=== PATIENT | male | born 1945 | race Caucasian/White ===

== ENCOUNTER 2018-12-17 09:31 | Observation (INO) ==
--- NOTE | 2018-12-17 10:13 | ERNOTE ---
Medical Problem HPI - General Chief Complaint: General Assessment Time Seen by Provider: 12/17/18 09:36 Source: patient Exam Limitations: no limitations - Immun/Allergies/Home Medications Immunizations: IMMUNIZATION HX Immunizations Up to Date Yes History of Influenza Vaccine More Information Required Hx Pneumococcal Vaccination More Information Required Allergies/Adverse Reactions: Allergies No Known Allergies Allergy (Verified 07/11/18 09:25) Home Medications: HOME MEDICATIONS Furosemide [Lasix] 20 mg PO DAILY 09/23/16 [Last Taken Unknown] Metoprolol Succinate [Toprol Xl] 50 mg PO DAILY 09/23/16 [Last Taken Unknown] Acetaminophen 650 mg PO Q6H PRN 12/14/18 [Last Taken Unknown] Acyclovir [Zovirax] 400 mg PO BID 12/14/18 [Last Taken Unknown] Allopurinol [Zyloprim] 300 mg PO DAILY 12/14/18 [Last Taken Unknown] Amlodipine Besylate 5 mg PO DAILY 12/14/18 [Last Taken Unknown] Amoxicillin/Potassium Clav [Amox Tr-K Clv 875-125 mg Tab] 1 ea PO Q12H 12/14/18 [Last Taken Unknown] Baclofen 10 mg PO TID PRN 12/14/18 [Last Taken Unknown] Calcium Carbonate [Calcium] 500 mg PO DAILY 12/14/18 [Last Taken Unknown] Hydromorphone HCl [Dilaudid] 2 mg PO Q4H PRN 12/14/18 [Last Taken Unknown] Insulin Aspart [Novolog Flexpen] See Protocol SQ TID 12/14/18 [Last Taken Unknown] Insulin Glargine,Hum.rec.anlog [Lantus Solostar] 30 unit SQ HS 12/14/18 [Last Taken Unknown] Losartan Potassium 100 mg PO DAILY 12/14/18 [Last Taken Unknown] Ondansetron HCl [Zofran] 8 mg PO Q8H PRN 12/14/18 [Last Taken Unknown] Polyethylene Glycol 3350 [Miralax] 17 gm PO DAILY PRN 12/14/18 [Last Taken Unknown] Prochlorperazine Maleate 10 mg PO Q6H PRN 12/14/18 [Last Taken Unknown] Sennosides 17.2 mg PO BID PRN 12/14/18 [Last Taken Unknown] Sulfamethoxazole/Trimethoprim [Bactrim Ds] 1 tab PO BID PRN 12/14/18 [Last Taken Unknown] Trimethobenzamide HCl 300 mg PO Q6H PRN 12/14/18 [Last Taken Unknown] - History of Present History Narrative: Patient was diagnosed and treated for a lymphoma last year. 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 He was admitted to the [facility] two weeks ago, had a nephrostomy tube placed as a tumor was compressing his right ureter. He received five days of chemo, last day six days ago. Today he had an outpatient CBC that showed low platelets and hemoglobin today. He feels very weak and vomited once last night (non bloody),has been drinking fluids since, no diarrhea, no abdominal pain. He had had bloody urine in the nephrostomy and in his urinal since discharge from [facility], denies any clots, no other bleeding, no bruising, no fever. He denies any significant pain, has only prn pain medication Review of Systems - Review of Systems Constitutional: Present: recent illness, weakness, fatigue, malaise. Absent: fever ENT: Absent: nose congestion, sore throat Respiratory: Absent: shortness of breath, cough Cardiology: Absent: chest pain Gastrointestinal/Abdominal: Present: See HPI, nausea, vomiting. Absent: diarrhea, abdominal pain Genitourinary: Present: See HPI Musculoskeletal: Absent: back pain Skin: Absent: rash Neurological: Present: weakness. Absent: headache Hematologic/Lymphatic: Absent: easy bruising Medical History (Last Updated 12/17/18 @ 10:44 by Padmini Rodriguez MD) Hypertension (Acute) Onset Date: Unknown Diabetes mellitus (Acute) Onset Date: Unknown B-cell lymphoma CHF (congestive heart failure) Chickenpox Onset Date: Unknown as child Cholelithiasis Onset Date: [address] @ [facility] Coronary artery disease Onset Date: Unknown Diabetes mellitus, type II Onset Date: Unknown Measles Onset Date: Unknown as child Mumps Onset Date: Unknown as child Myocardial infarction Onset Date: Unknown Personal history of colonic polyps Onset Date: 1998 Tendinitis Onset Date: 2007 Dr. Gillette-left elbow and forearm benign neoplasm of skin; other specified sites of skin Onset Date: 2008 Recurring, LLE-neurofibroma hyperlipidemia Onset Date: Unknown Surgical History: Surgical History (Last Updated 12/17/18 @ 10:45 by Padmini Rodriguez MD) S/P CABG x 5 (Acute) Onset Date: Unknown H/O nephrostomy History of excision of lesion Onset Date: 2008 [place]-Recurring lesion, LLE-neurofibroma History of repair of rotator cuff Onset Date: Unknown Hx laparoscopic cholecystectomy Onset Date: 2011 Tinguely colonoscopy with biopsy Onset Date: 2013-polyps x3, '04-few scattered diverticula in sigmoid otherwise wnl- [facility]. Tinguely-tubular adenoma. Recheck 5 yrs. Social History: Preferred Language Danish Do you have any nondenominational or Yes: jainism cultural preference? Smoking Status Never smoker Have you smoked in the past 12 No months Do you dip or chew tobacco No Alcohol Use none Drug Use none (Last Updated 07/16/18 @ 14:14 by Ana Laura Oconnor RN) No Social History Section defined Physical Exam - Physical Exam General Appearance: Present: wd/wn, alert, no apparent distress Head Exam: Present: normal inspection, no evidence of injury Eye Exam: Normal inspection: bilateral, PERRL: bilateral Ears, Nose, Throat: Present: normal ENT inspection, normal pharynx Neck: Present: normal inspection Respiratory: Present: no respiratory distress, normal breath sounds, no acc essory muscle use, lungs clear Cardiovascular/Chest: Present: tachycardia - slightly tachycardic Gastrointestinal/Abdominal: Present: normal bowel sounds, nontender, nondistended, soft Back Exam: Present: normal inspection, no CVA tenderness, no vertebral tenderness, other - nephrostomy tube right lower back, dressing clean without leakage Extremity Exam: Present: no edema Neurological Exam: Present: alert, oriented, normal mood/affect Skin Exam: Present: warm/dry, pallor. Absent: skin rash Progress - Results and Orders Patient's Lab Results:: I have reviewed the patient's lab results. - Vital Signs Patient's Vital Signs:: I have reviewed the patient's vital signs. Vital Signs: Vital Signs 12/17/18 09:38 Temperature 36.4 C Pulse Rate 108 H Respiratory Rate 15 Blood Pressure 125/64 O2 Sat by Pulse Oximetry 99 - EKG EKG #1 EKG: NSR - sinustachycardia 102, RBBB EKG read: Interp. by me - X-Ray X-Ray #1 X-Ray: chest - no acute changes Interpretation: Reviewed by me - Progress/Reassessment Chief Complaint: General Assessment Progress Note-Subjective: 12/17/18 10:55 call to [facility] 12/17/18 11:[address] Hopkins (oncology), agrees with giving two units of irradiated RBCs, suggest giving one unit of platelets as well either today or tomorrow as no indication for sepsis or infection no reason for transfer at this point 12/17/18 11:20 updated patient and family on results and plan will discharge patient to the annex for transfusion no fluids given in ER for tachycardia as patient has CHF and will receive blood and platelets [facility] 16 12/17/18 19:20 patient had been in the annex for the last few hours, after finishing platelets and second unit of RBCs patient started to have a fever. This is most likely a transfusion reaction but as patient is neutropenic a neutropenic fever is not excluded. Discussed with Dr Rubio ([employer]) agreed to direct admit patient, will order blood culture start patient on cipro 500mg po bid and augmentin 875po bid Dr Rubio will come in and assess patient Departure Clinical Impression: Thrombocytopenia Anemia Qualifiers: Anemia type: unspecified type Qualified Code(s): D64.9 - Anemia, unspecified Neutropenia Qualifiers: Neutropenia type: secondary to cancer chemotherapy Qualified Code(s): D70.1 - Agranulocytosis secondary to cancer chemotherapy - Departure Disposition: Home self-care Condition: Stable
[2018-12-17 10:27] LABS: Albumin * 2.8 gm/dl (3.4-5.0); Anion Gap 13.7 mmol/L (6.8-13.8); BUN/Creatinine Ratio 17.8 (9.0-21.6); Bilirubin, Total 0.9 mg/dL (0.0-1.1); CRP 4.1 mg/dL (0.0-0.9); Ca. Corrected For Albumin 12.3 mg/dL (8.4-10.2); Calcium * 11.7 mg/dL (7.9-10.9); Carbon Dioxide 24.1 mmol/L (24-32.6); Potassium 3.8 mmol/L (3.4-4.6); Total Protein 5.1 gm/dL (6.2-8.2); Troponin I 0.023 ng/mL (0.00-0.10)
[2018-12-17 10:31] LABS: Urine Bilirubin Negative (NEGATIVE); Urine Blood 250 /ul (NEGATIVE); Urine Ketone Negative (NEGATIVE); Urine Nitrite Negative (NEGATIVE); Urine Protein 100 mg/dL (NEGATIVE); Urine Urobilinogen Normal (NORMAL)
[2018-12-17 10:43] LABS: Urine Appearance Cloudy (CLEAR); Urine Bacteria None Seen; Urine Color Red; Urine RBC >50 /hpf (0-5); Urine WBC None Seen /hpf (0-5)
[2018-12-17] MEDS ORDERED: INSULIN LISPRO 100 UNITS/ML VIAL SC ONE (10:51)
[2018-12-17] MEDS ORDERED: PROCHLORPERAZINE MALEATE 10 MG TABLET PO ONE (17:07)
[2018-12-17] MEDS ORDERED: AMOX TR/POTASSIUM CLAVULANATE 875 MG TABLET PO SCH (21:00)
[2018-12-17] MEDS ORDERED: CIPROFLOXACIN HCL 500 MG TABLET PO SCH (21:00)
[2018-12-17 21:21] LABS: Hemoglobin 6.3 gm/dL (13.5-18.0); Mean Cell Volume 81.4 fl (78-100); Mean Corpuscular Hemoglobin 28.5 pg (27-31); Mean Platelet Volume 9.4 fl (8-11.3); Platelet Count 34 K/mm3 (150-450); Red Blood Count 2.21 M/mm3 (4.7-6.0); Red Cell Distribution Width 12.3 % (11.5-14.0); White Blood Count 0.4 K/mm3 (4.0-10.5)
[2018-12-17 21:37] LABS: Total Cells Counted 25
[2018-12-17 21:38] LABS: Eosinophil 4 % (0-3); Lymphocyte 92 % (20-51); Neutrophil 4 % (42-75); Platelet Estimate Decreased (NORMAL)
[2018-12-17 21:39] LABS: Hypochromia 3+; Microcytosis 2+
--- NOTE | 2018-12-17 22:13 | HP ---
Chief Complaint - Chief Complaint Date of Service: 12/17/18 Time of Service: 22:10 Chief Complaint: fever, neutropenia, blood loss anemia History of Present Illness: 73-year-old male with history of B-cell lymphoma currently undergoing chemotherapy, most recent treatments 1 week prior. Brought into the hospital for blood transfusion. Initial hemoglobin was 6.4 with a platelet count of 10. He was given 1 unit packed red blood cells as well as 2 units of platelets. Follow-up hemoglobin showed him to have a hemoglobin of 6.3. He does have a nephrostomy bag that shows blood in it though this does not likely account for the drop as there is not danette blood in the bag. He also spiked a fever following the transfusion which is likely a transfusion reaction though due to patient's history patient was started on Augmentin and Cipro as he had no other signs or symptoms of infection. Patient was placed under observation to monitor vitals. Medical History (Last Reviewed 12/17/18 @ 20:37 by Estephania Herrera RN) Hypertension (Acute) Onset Date: Unknown Diabetes mellitus (Acute) Onset Date: Unknown B-cell lymphoma CHF (congestive heart failure) Chickenpox Onset Date: Unknown as child Cholelithiasis Onset Date: [address] @ [facility] Coronary artery disease Onset Date: Unknown Diabetes mellitus, type II Onset Date: Unknown Measles Onset Date: Unknown as child Mumps Onset Date: Unknown as child Myocardial infarction Onset Date: Unknown Personal history of colonic polyps Onset Date: 1998 Tendinitis Onset Date: 2007 Dr. Gillette-left elbow and forearm benign neoplasm of skin; other specified sites of skin Onset Date: 2008 Recurring, LLE-neurofibroma hyperlipidemia Onset Date: Unknown Surgical History: Surgical History (Last Reviewed 12/17/18 @ 20:37 by Estephania Herrera RN) S/P CABG x 5 (Acute) Onset Date: Unknown H/O nephrostomy History of excision of lesion Onset Date: 2008 [place]-Recurring lesion, LLE-neurofibroma History of repair of rotator cuff Onset Date: Unknown Hx laparoscopic cholecystectomy Onset Date: 2011 Tinguely colonoscopy with biopsy Onset Date: 2013-polyps x3, '04-few scattered diverticula in sigmoid otherwise wnl- [facility]. Tinguely-tubular adenoma. Recheck 5 yrs. Social History: Patient Lives/Resources Home Utilized Occupation Father Preferred Language Latvian Do you have any presybeterian or Yes: Uatsdin cultural preference? Smoking Status Former smoker Have you smoked in the past 12 Yes months Do you dip or chew tobacco No Alcohol Use none Drug Use none (Last Updated 07/16/18 @ 14:14 by Ana Laura Oconnor RN) No Social History Section defined Review Of Systems (GEN) - Review of Systems Generalized/Overall Review: Present: Weakness. Absent: Chills, Fever EENTM: Present: No Symptoms Reported Respiratory: Present: No Symptoms Reported Cardiac: Present: No Symptoms Reported Genitourinary: Present: Hematuria - In nephrostomy bag Musculoskeletal: Present: No Symptoms Reported Neurological: Present: No Symptoms Reported Immunizations: IMMUNIZATION HX Immunizations Up to Date Yes History of Influenza Vaccine More Information Required Hx Pneumococcal Vaccination More Information Required Allergies/Adverse Reactions: Allergies Allergy/AdvReac Type Severity Reaction Status Date / Time No Known Allergies Allergy Verified 07/11/18 09:25 Home Medications: HOME MEDICATIONS Furosemide [Lasix] 20 mg PO DAILY 09/23/16 [Last Taken 12/17/18 09:00] Metoprolol Succinate [Toprol Xl] 50 mg PO DAILY 09/23/16 [Last Taken 12/17/18 09:00] Acetaminophen 650 mg PO Q6H PRN 12/14/18 [Last Taken Unknown] Acyclovir [Zovirax] 400 mg PO BID 12/14/18 [Last Taken 12/17/18 08:30] Allopurinol [Zyloprim] 300 mg PO DAILY 12/14/18 [Last Taken 12/17/18 08:30] Amlodipine Besylate 5 mg PO DAILY 12/14/18 [Last Taken 12/17/18 09:00] Amoxicillin/Potassium Clav [Amox Tr-K Clv 875-125 mg Tab] 1 ea PO Q12H 12/14/18 [Last Taken 12/17/18 08:30] Baclofen 10 mg PO TID PRN 12/14/18 [Last Taken 12/15/18] Calcium Carbonate [Calcium] 500 mg PO DAILY 12/14/18 [Last Taken 12/17/18 12:00] Hydromorphone HCl [Dilaudid] 2 mg PO Q4H PRN 12/14/18 [Last Taken 12/14/18] Insulin Aspart [Novolog Flexpen] See Protocol SQ TID 12/14/18 [Last Taken 12/17/18 19:30] Insulin Glargine,Hum.rec.anlog [Lantus Solostar] 30 unit SQ HS 12/14/18 [Last Taken 12/16/18 21:00] Losartan Potassium 100 mg PO DAILY 12/14/18 [Last Taken 12/17/18 12:00] Ondansetron HCl [Zofran] 8 mg PO Q8H PRN 12/14/18 [Last Taken Unknown] Polyethylene Glycol 3350 [Miralax] 17 gm PO DAILY PRN 12/14/18 [Last Taken Unknown] Prochlorperazine Maleate 10 mg PO Q6H PRN 12/14/18 [Last Taken 12/17/18 17:00] Sennosides 17.2 mg PO BID PRN 12/14/18 [Last Taken 12/16/18 09:00] Sulfamethoxazole/Trimethoprim [Bactrim Ds] 1 tab PO BID PRN 12/14/18 [Last Taken 12/13/18] Trimethobenzamide HCl 300 mg PO Q6H PRN 12/14/18 [Last Taken 12/16/18 22:00] Exam - Exam Vital Signs: Vital Signs - Last Taken Temp 36.6 C 12/17/18 19:40 Pulse 123 H 12/17/18 19:40 Resp 16 12/17/18 19:40 BP 131/61 12/17/18 19:40 Pulse Ox 98 12/17/18 19:40 Comprehensive Narrative: 12/17/18 22:16 Minimal exam done due to patient's immunocompromised situation. Constitutional: Present: Alert, Oriented x3 Abdomen: Present: soft, nontender Skin Exam: Present: normal color, warm/dry Appearance: Present: appropriate appearance, appropriate insight Eye contact: Present: cooperative Thoughts: Present: normal thought pattern, normal mood /affect Diagnostic Studies: Abnormal Lab Results 12/17/18 12/17/18 12/17/18 Range/Units 08:40 10:00 10:23 WBC (4.0-10.5) K/mm3 RBC (4.7-6.0) M/mm3 Hgb (13.5-18.0) gm/dL Hct (42.0-52.0) % Plt Count (150-450) K/mm3 Neutrophils % (Manual) (42-75) % Lymphocytes % (Manual) (20-51) % Eosinophils % (Manual) (0-3) % Platelet Estimate (NORMAL) BUN 27 H (6-23) mg/dL Creatinine 1.52 H (0.4-1.4) mg/dL Est GFR (Non-Af Amer) 48 L D (60-130) mL/min Random Glucose 278 H (70-110) mg/dL Calcium 11.7 H (7.9-10.9) mg/dL Calcium Adj for Albumin 12.3 H (8.4-10.2) mg/dL ALT 13 L (19-67) U/L C-Reactive Prot, Quant 4.1 H (0.0-0.9) mg/dL Total Protein 5.1 L (6.2-8.2) gm/dL Albumin 2.8 L (3.4-5.0) gm/dl Urine Protein 100 H (NEGATIVE) mg/dL Urine Blood 250 H (NEGATIVE) /ul Prot Sulfosalicylic Acd 4+ H (0) mg/dL Urine RBC >50 H (0-5) /hpf Crossmatch See Detail 12/17/18 Range/Units 19:45 WBC 0.4 L D (4.0-10.5) K/mm3 RBC 2.21 L (4.7-6.0) M/mm3 Hgb 6.3 L* (13.5-18.0) gm/dL Hct 18.0 L* (42.0-52.0) % Plt Count 34 L (150-450) K/mm3 Neutrophils % (Manual) 4 L (42-75) % Lymphocytes % (Manual) 92 H (20-51) % Eosinophils % (Manual) 4 H (0-3) % Platelet Estimate Decreased L (NORMAL) BUN (6-23) mg/dL Creatinine (0.4-1.4) mg/dL Est GFR (Non-Af Amer) (60-130) mL/min Random Glucose (70-110) mg/dL Calcium (7.9-10.9) mg/dL Calcium Adj for Albumin (8.4-10.2) mg/dL ALT (19-67) U/L C-Reactive Prot, Quant (0.0-0.9) mg/dL Total Protein (6.2-8.2) gm/dL Albumin (3.4-5.0) gm/dl Urine Protein (NEGATIVE) mg/dL Urine Blood (NEGATIVE) /ul Prot Sulfosalicylic Acd (0) mg/dL Urine RBC (0-5) /hpf Crossmatch Laboratory Results WBC 0.4 K/mm3 (4.0-10.5) L D 12/17/18 19:45 RBC 2.21 M/mm3 (4.7-6.0) L 12/17/18 19:45 Hgb 6.3 gm/dL (13.5-18.0) L* 12/17/18 19:45 Hct 18.0 % (42.0-52.0) L* 12/17/18 19:45 MCV 81.4 fl (78-100) 12/17/18 19:45 MCH 28.5 pg (27-31) 12/17/18 19:45 MCHC 35.0 g/dl (32-36) 12/17/18 19:45 RDW 12.3 % (11.5-14.0) 12/17/18 19:45 Plt Count 34 K/mm3 (150-450) L 12/17/18 19:45 MPV 9.4 fl (8-11.3) 12/17/18 19:45 Neutrophils % (Manual) 4 % (42-75) L 12/17/18 19:45 Lymphocytes % (Manual) 92 % (20-51) H 12/17/18 19:45 Eosinophils % (Manual) 4 % (0-3) H 12/17/18 19:45 Platelet Estimate Decreased (NORMAL) L 12/17/18 19:45 Hypochromasia 3+ 12/17/18 19:45 Microcytosis 2+ 12/17/18 19:45 Sodium 132 mmol/L (132-142) 12/17/18 10:00 Plasma Sodium 135 mmol/L (130-142) 12/17/18 10:00 Potassium 3.8 mmol/L (3.4-4.6) 12/17/18 10:00 Chloride 98 mmol/L (97-106) 12/17/18 10:00 Carbon Dioxide 24.1 mmol/L (24-32.6) 12/17/18 10:00 Anion Gap 13.7 mmol/L (6.8-13.8) 12/17/18 10:00 BUN 27 mg/dL (6-23) H 12/17/18 10:00 Creatinine 1.52 mg/dL (0.4-1.4) H 12/17/18 10:00 Est GFR (Non-Af Amer) 48 mL/min (60-130) L D 12/17/18 10:00 BUN/Creatinine Ratio 17.8 (9.0-21.6) 12/17/18 10:00 Random Glucose 278 mg/dL (70-110) H 12/17/18 10:00 Lactic Acid, Venous 1.2 mmol/L (0.4-2.0) 12/17/18 10:00 Calcium 11.7 mg/dL (7.9-10.9) H 12/17/18 10:00 Calcium Adj for Albumin 12.3 mg/dL (8.4-10.2) H 12/17/18 10:00 Total Bilirubin 0.9 mg/dL (0.0-1.1) 12/17/18 10:00 AST 9 U/L (0-48) 12/17/18 10:00 ALT 13 U/L (19-67) L 12/17/18 10:00 Alkaline Phosphatase 59 U/L (50-170) 12/17/18 10:00 Troponin I 0.023 ng/mL (0.00-0.10) 12/17/18 10:00 C-Reactive Prot, Quant 4.1 mg/dL (0.0-0.9) H 12/17/18 10:00 Total Protein 5.1 gm/dL (6.2-8.2) L 12/17/18 10:00 Albumin 2.8 gm/dl (3.4-5.0) L 12/17/18 10:00 Procalcitonin 0.35 ng/mL (0.05-0.50) 12/17/18 10:00 Urine Color Red 12/17/18 10:23 Urine Appearance Cloudy (CLEAR) 12/17/18 10:23 Urine pH 6.0 pH (5.0-7.0) 12/17/18 10:23 Ur Specific [place] 1.020 SP.GR. (1.005-1.030) 12/17/18 10:23 Urine Protein 100 mg/dL (NEGATIVE) H 12/17/18 10:23 Urine Glucose (UA) Negative mg/dL (NEGATIVE) 12/17/18 10:23 Urine Ketones Negative mg/dL (NEGATIVE) 12/17/18 10:23 Urine Blood 250 /ul (NEGATIVE) H 12/17/18 10:23 Urine Nitrate Negative (NEGATIVE) 12/17/18 10:23 Urine Bilirubin Negative mg/dl (NEGATIVE) 12/17/18 10:23 Prot Sulfosalicylic Acd 4+ mg/dL (0) H 12/17/18 10:23 Urine Urobilinogen Normal EU/dl (NORMAL) 12/17/18 10:23 Ur Leukocyte Esterase Negative /ul (NEGATIVE) 12/17/18 10:23 Urine RBC >50 /hpf (0-5) H 12/17/18 10:23 Urine WBC None seen /hpf (0-5) 12/17/18 10:23 Ur Epithelial Cells 0-5 /hpf (0-5) 12/17/18 10:23 Urine Bacteria None seen (NONE) 12/17/18 10:23 Urine Culture Comments No culture indicated 12/17/18 10:23 Blood Type Cancelled 12/17/18 08:40 Antibody Screen Cancelled 12/17/18 08:40 Crossmatch See Detail 12/17/18 08:40 Assessment/Plan - Narrative Narrative: I was notified of the patient's hemoglobin result as I entered the room. Concerned that patient's clinical situation may deteriorate rather quickly I called the [facility] and discussed this case with the hematology/oncology fellow who agreed that the patient should be transferred up to the ER soon. Spoke with Dr. Sanders in the ER, I explained the situation to him and discussed the clinical picture as well as the labs that we had on this patient and he agreed to accept transfer. Discussed this with the patient who also accepted the transfer Tto the [facility]. The [place] asked us to hang 1 more unit of packed red blood cells to be given in route. - Assessment/Plan (1) B-cell lymphoma Problem: Acute (2) Anemia Problem: Acute Qualifiers: Anemia type: unspecified type Qualified Code(s): D64.9 - Anemia, unspecified (3) Thrombocytopenia Problem: Acute (4) Neutropenia Problem: Acute Qualifiers: Neutropenia type: secondary to cancer chemotherapy Qualified Code(s): D70.1 - Agranulocytosis secondary to cancer chemotherapy; T45.1X5A - Adverse effect of antineoplastic and immunosuppressive drugs, initial encounter
--- NOTE | 2018-12-17 22:26 | DS ---
Transfer Discharge Summary - Diagnosis(s)/Problems (1) B-cell lymphoma Problem: Acute (2) Anemia Problem: Acute (3) Thrombocytopenia Problem: Acute (4) Neutropenia Problem: Acute - Course Description of Stay: Patient being transferred to the [facility] due to anemia, neutropenia, history of B-cell lymphoma recently undergoing chemotherapy. Patient had hemoglobin of 6.4 prior to being transfused 1 unit packed red blood cells which dropped posttransfusion 96.3. Patient has a nephrostomy bag which has some blood in it but does not account for the total loss of blood product. He also developed a fever of a 101 posttransfusion which was likely just a reaction to the blood products as the patient had no signs or symptoms of infection prior to the blood. Due to his clinical picture though and his labs his case was discussed with the hematology oncology fellow at the [facility] she recommended that he be transferred up there tonight. This case was discussed with Dr. Sanders, and ER doctor worked at the [facility]. His vitals are fairly stable aside from him being tachycardic at 123. Blood pressure 130/70. Respirations 16 sat 97% room air. Platelet count john to 34 from 10. Hemoglobin was 6.4 down to 6.3 upon transfer. 1 unit of packed red blood cells was ordered and hung prior to transfer. Procedures Performed: none - Results and Findings Results and Findings: Laboratory Results - last 24 hr 12/17/18 12/17/18 12/17/18 08:40 10:00 10:00 WBC RBC Hgb Hct MCV MCH MCHC RDW Plt Count MPV Neutrophils % (Manual) Lymphocytes % (Manual) Eosinophils % (Manual) Platelet Estimate Hypochromasia Microcytosis Sodium 132 Plasma Sodium 135 Potassium 3.8 Chloride 98 Carbon Dioxide 24.1 Anion Gap 13.7 BUN 27 H Creatinine 1.52 H Est GFR (Non-Af Amer) 48 L D BUN/Creatinine Ratio 17.8 Random Glucose 278 H Lactic Acid, Venous Calcium 11.7 H Calcium Adj for Albumin 12.3 H Total Bilirubin 0.9 AST 9 ALT 13 L Alkaline Phosphatase 59 Troponin I 0.023 C-Reactive Prot, Quant 4.1 H Total Protein 5.1 L Albumin 2.8 L Procalcitonin 0.35 Urine Color Urine Appearance Urine pH Ur Specific [place] Urine Protein Urine Glucose (UA) Urine Ketones Urine Blood Urine Nitrate Urine Bilirubin Prot Sulfosalicylic Acd Urine Urobilinogen Ur Leukocyte Esterase Urine RBC Urine WBC Ur Epithelial Cells Urine Bacteria Urine Culture Comments Blood Type Cancelled Antibody Screen Cancelled Crossmatch See Detail 12/17/18 12/17/18 12/17/18 10:00 10:23 19:45 WBC 0.4 L D RBC 2.21 L Hgb 6.3 L* Hct 18.0 L* MCV 81.4 MCH 28.5 MCHC 35.0 RDW 12.3 Plt Count 34 L MPV 9.4 Neutrophils % (Manual) 4 L Lymphocytes % (Manual) 92 H Eosinophils % (Manual) 4 H Platelet Estimate Decreased L Hypochromasia 3+ Microcytosis 2+ Sodium Plasma Sodium Potassium Chloride Carbon Dioxide Anion Gap BUN Creatinine Est GFR (Non-Af Amer) BUN/Creatinine Ratio Random Glucose Lactic Acid, Venous 1.2 Calcium Calcium Adj for Albumin Total Bilirubin AST ALT Alkaline Phosphatase Troponin I C-Reactive Prot, Quant Total Protein Albumin Procalcitonin Urine Color Red Urine Appearance Cloudy Urine pH 6.0 Ur Specific [place] 1.020 Urine Protein 100 H Urine Glucose (UA) Negative Urine Ketones Negative Urine Blood 250 H Urine Nitrate Negative Urine Bilirubin Negative Prot Sulfosalicylic Acd 4+ H Urine Urobilinogen Normal Ur Leukocyte Esterase Negative Urine RBC >50 H Urine WBC None seen Ur Epithelial Cells 0-5 Urine Bacteria None seen Urine Culture Comments No culture indicated Blood Type Antibody Screen Crossmatch 12/17/18 19:45 WBC RBC Hgb Hct MCV MCH MCHC RDW Plt Count MPV Neutrophils % (Manual) Lymphocytes % (Manual) Eosinophils % (Manual) Platelet Estimate Hypochromasia Microcytosis Sodium Plasma Sodium Potassium Chloride Carbon Dioxide Anion Gap BUN Creatinine Est GFR (Non-Af Amer) BUN/Creatinine Ratio Random Glucose Lactic Acid, Venous Calcium Calcium Adj for Albumin Total Bilirubin AST ALT Alkaline Phosphatase Troponin I C-Reactive Prot, Quant Total Protein Albumin Procalcitonin Urine Color Urine Appearance Urine pH Ur Specific [place] Urine Protein Urine Glucose (UA) Urine Ketones Urine Blood Urine Nitrate Urine Bilirubin Prot Sulfosalicylic Acd Urine Urobilinogen Ur Leukocyte Esterase Urine RBC Urine WBC Ur Epithelial Cells Urine Bacteria Urine Culture Comments Blood Type B Positive Antibody Screen Negative Crossmatch See Detail - Medications Medications: Active Medications Amoxicillin/Clavulanate Potassium (Augmentin 875-125 Tablet) 875 mg PO BID [facility]; Protocol Stop: 01/16/19 21:01 Last Admin: 12/17/18 21:14 Dose: 875 mg Documented by: Ciprofloxacin (Cipro) 500 mg PO BID [facility]; Protocol Stop: 01/16/19 21:01 Last Admin: 12/17/18 21:14 Dose: 500 mg Documented by: Discontinued Medications Insulin Human Lispro (Humalog) 15 units SC ONCE ONE Stop: 12/17/18 10:52 Last Admin: 12/17/18 11:16 Dose: 15 units Documented by: Prochlorperazine Maleate (Compazine) 10 mg PO ONCE ONE Stop: 12/17/18 17:08 Last Admin: 12/17/18 17:10 Dose: 10 mg Documented by: - Disposition Disposition: Short Term Hospital Inpatient Condition: Serious Discharge Date: 12/17/18 Discharge Time: 22:26
[2018-12-18 00:33] VITALS: BP 108/57
== END 2018-12-17 23:10 | disposition short-term general hospital (02) ==
LOC: ER 09:31 → MS 09:31 → ER 11:41
PROVIDERS: ADMIT Family Medicine; ATTEND Family Medicine
CPT/HCPCS: 36415; 36430; 71010; 71045; 80053; 81001; 83605; 84145; 84484; 85025; 86078; 86140; 86850; 86900; 87040; 93005; 96372; 99285; G0378

== ENCOUNTER 2019-06-02 19:29 | Inpatient (IN) ==
--- NOTE | 2019-06-02 19:50 | ERNOTE ---
Dyspnea - Date Date of Service: 06/02/19 - General Presenting Symptoms: shortness of breath Time Seen by Provider: 06/02/19 19:43 Source: EMS notes reviewed, shelter records Exam Limitations: no limitations - Immun/Allergies/Home Medications Immunizations: IMMUNIZATION HX Immunizations Up to Date Yes History of Influenza Vaccine Yes Hx Pneumococcal Vaccination Yes Allergies/Adverse Reactions: Allergies No Known Allergies Allergy (Verified 06/02/19 23:50) Home Medications: HOME MEDICATIONS Furosemide [Lasix] 20 mg PO DAILY 09/23/16 [Last Taken 12/17/18 09:00] Acetaminophen 650 mg PO Q6H PRN 12/14/18 [Last Taken Unknown] Calcium Carbonate [Calcium] 500 mg PO DAILY 12/14/18 [Last Taken 12/17/18 12:00] Insulin Aspart [Novolog Flexpen] See Protocol SQ TID 12/14/18 [Last Taken 12/17/18 19:30] Losartan Potassium 100 mg PO DAILY 12/14/18 [Last Taken 12/17/18 12:00] Ondansetron HCl [Zofran] 8 mg PO Q8H PRN 12/14/18 [Last Taken Unknown] Polyethylene Glycol 3350 [Miralax] 17 gm PO DAILY PRN 12/14/18 [Last Taken Unknown] Prochlorperazine Maleate 10 mg PO Q6H PRN 12/14/18 [Last Taken 12/17/18 17:00] Sennosides 17.2 mg PO BID PRN 12/14/18 [Last Taken 12/16/18 09:00] Sulfamethoxazole/Trimethoprim [Bactrim Ds] 1 tab PO BID PRN 12/14/18 [Last Taken 12/13/18] Trimethobenzamide HCl 300 mg PO Q6H PRN 12/14/18 [Last Taken 12/16/18 22:00] melatonin 5 mg tablet 5 mg PO HS #30 tab 05/12/19 [Last Taken Unknown] oxycodone-acetaminophen 5 mg-325 mg tablet 1 tab PO Q4H PRN #60 tab 05/12/19 [Last Taken Unknown] zolpidem 5 mg tablet 5 mg PO HS PRN #30 tab 05/14/19 [Last Taken Unknown] amiodarone 200 mg tablet 200 mg PO DAILY 05/16/19 [Last Taken Unknown] insulin glargine (U-100) 100 unit/mL (3 mL) subcutaneous pen 20 unit SUBCUT HS ml 05/21/19 [Last Taken Unknown] tramadol 50 mg tablet 50 mg PO Q6H PRN #30 tab 05/27/19 [Last Taken Unknown] potassium chloride 40 mEq/15 mL oral liquid 10 meq PO DAILY #473 ml 05/31/19 [Last Taken Unknown] Acyclovir [Zovirax] 400 mg PO BID 06/02/19 [Last Taken Unknown] acetaZOLAMIDE [Diamox Sequels] 500 mg PO BID 06/02/19 [Last Taken Unknown] acetazolamide 250 mg tablet 250 mg PO QID #60 tab 06/02/19 [Last Taken Unknown] metoprolol tartrate 25 mg tablet 25 mg PO BID #60 tab 06/02/19 [Last Taken Unknown] - History of Present Illness Narrative: 73-year-old male sent from shelter for possible aspiration was noted earlier tonight this evening and his saturations from his O2 sats were in the low 80s he was suctioned at the shelter sent in by ambulance where he was put on 10 L and sats are 98% he feels warm to touch and has audible rhonchi history of being treated for B-cell lymphoma Patient and sister who was at the bedside have agreed that he will be a DNR if he stops breathing and CPR is necessary Date (Duration): 06/02/19 Time (Timing): 19:45 Severity: severe Treatment WRECKING [employer]PER[employer]OR: paramedics Initiating event: Reports: aspiration/choking Frequency of episodes: Reports: no prior episodes Modifying Factors - (Improves): Reports: oxygen Modifying Factors (Worsens): Reports: coughing Associated Symptoms-Dyspnea: Reports: denies symptoms Prior Treatment: Reports: recently seen Review of Systems - Review of Systems Constitutional: Present: recent illness, fever, weakness, malaise EYE: Present: no symptoms reported ENT: Present: no symptoms reported Respiratory: Present: shortness of breath, cough, wheezing Cardiology: Present: palpitations Gastrointestinal/Abdominal: Present: no symptoms reported Genitourinary: Present: no symptoms reported Musculoskeletal: Present: back pain Skin: Present: rash, lumps Neurological: Present: weakness, numbness All Other Systems: All systems neg except as marked Medical History (Updated 05/13/19 @ 00:00 by ) Hypertension (Acute) Onset Date: Unknown Diabetes mellitus (Acute) Onset Date: Unknown B-cell lymphoma CHF (congestive heart failure) Chickenpox Onset Date: Unknown as child Cholelithiasis Onset Date: [address] @ [facility] Coronary artery disease Onset Date: Unknown Diabetes mellitus, type II Onset Date: Unknown Measles Onset Date: Unknown as child Mumps Onset Date: Unknown as child Myocardial infarction Onset Date: Unknown Personal history of colonic polyps Onset Date: 1998 Tendinitis Onset Date: 2007 Dr. Gillette-left elbow and forearm benign neoplasm of skin; other specified sites of skin Onset Date: 2008 Recurring, LLE-neurofibroma hyperlipidemia Onset Date: Unknown Surgical History: Surgical History (Updated 06/02/19 @ 23:50 by Marimar Poole RN) S/P CABG x 5 (Acute) Onset Date: Unknown Pacemaker H/O nephrostomy History of excision of lesion Onset Date: 2008 B[place]-Recurring lesion, LLE-neurofibroma History of repair of rotator cuff Onset Date: Unknown Hx laparoscopic cholecystectomy Onset Date: 2011 Tinguely colonoscopy with biopsy Onset Date: 2013-polyps x3, '-few scattered diverticula in sigmoid otherwise [facility] Tinguely-tubular adenoma. Recheck 5 yrs. Family History: Family History (Updated 06/02/19 @ 23:50 by Marimar Poole RN) Other Adopted Social History: (Last Reviewed 06/02/19 @ 20:11 by Ailyn Pineda RN) Social History: Marital status: Single Tobacco: Smoking Status: Never smoker Alcohol: alcohol intake: current alcohol intake frequency: holiday/special occasion Substance Use: substance use type: does not use Dietary Habits: caffeine: Yes Physical Exam - Physical Exam General Appearance: Present: alert, moderate distress, lethargic, cachetic Head Exam: Present: other - 3 cm lump in the right parietal region of the skull scalp Eye Exam: Normal inspection: bilateral, EOMI: bilateral Ears, Nose, Throat: Present: pharyngeal erythema, dry mucous membranes Neck: Present: normal inspection, nontender Respiratory: Present: respiratory distress, expiration (prolonged), crackles, rales, stridor, wheezing Cardiovascular/Chest: Present: tachycardia Peripheral Pulses: N=norm/S=strong/W=weak/B=bound/A=absent: Carotid (R): Normal, Carotid (L): Normal, Radial (R): Normal, Radial (L): Normal Gastrointestinal/Abdominal: Present: normal bowel sounds Back Exam: Present: normal inspection, decreased range of motion Extremity Exam: Present: normal inspection, no edema Neurological Exam: Present: motor weakness, disoriented to person, disoriented to time Skin Exam: Present: warm/dry Lymphatic Exam: Present: no adenopathy Progress - Results and Orders Patient's Lab Results:: I have reviewed the patient's lab results. Results and Orders: Patient has BNP of 1318, lactic acid of 3.0, BUN 45, creatinine 1.0 CO2 is 17.5 Hemoglobin 11.8 hematocrit 37 5 WBC 11.2 with 83 polys 8 lymphs ABG on 5 L pH 7.389 PCO2 20.8 PO2 83 bicarb 12.3 sat 96.4 - Vital Signs Patient's Vital Signs:: I have reviewed the patient's vital signs. Vital Signs: Vital Signs 06/02/19 19:35 Temperature 37.1 C Pulse Rate 114 H Respiratory Rate 31 H Blood Pressure 112/48 O2 Sat by Pulse Oximetry 98 - EKG EKG #1 EKG: NSR EKG read: Interp. by me EKG Comments: Sinus tachycardia heart rate 119 right bundle branch block no acute finding as compared to April the - X-Ray X-Ray #1 X-Ray: chest Interpretation: Discgypsy w/ radiologist X-ray Comments: Read by radiologist as a retrocardiac infiltrate consistent with pneumonia - Progress/Reassessment Chief Complaint: Dyspnea Plan - Plan Plan: Plan is to start antibiotics Zosyn vancomycin is for possible aspiration pneumonia and admit the patient Departure Clinical Impression: Aspiration pneumonia, CHF (congestive heart failure), Lymphoma - Departure Disposition: Short Term Hospital Inpatient Condition: Stable
[2019-06-02] MEDS ORDERED: ALBUTEROL SULFATE/IPRATROPIUM 3 ML NEBU IH ONE (19:53)
[2019-06-02] MEDS ORDERED: ACETAMINOPHEN 650 MG SUPP.RECT RC ONE (19:53)
[2019-06-02] MEDS ORDERED: NORMAL SALINE 1,000 ML IV ONE ×2 (19:53→20:45)
[2019-06-02 20:24] LABS: Hematocrit 37.5 % (42.0-52.0); Hemoglobin 11.8 gm/dL (13.5-18.0); Mean Cell Volume 96.9 fl (78-100); Mean Corpuscular Hemoglobin 30.5 pg (27-31); Mean Corpuscular Hgb Conc 31.5 g/dl (32-36); Mean Platelet Volume 10.7 fl (8-11.3); Platelet Count 116 K/mm3 (150-450); Red Blood Count 3.87 M/mm3 (4.7-6.0); Red Cell Distribution Width 17.7 % (11.5-14.0); White Blood Count 11.2 K/mm3 (4.0-10.5)
[2019-06-02 20:29] LABS: Total Cells Counted 100
[2019-06-02 20:37] LABS: Prothrombin Time (Patient) 12.3 Seconds (9.1-10.7)
[2019-06-02 20:40] LABS: INR 1.25 INR (0.92-1.08); Partial Thrombolplastin Time 30.3 Seconds (24-32)
[2019-06-02 20:45] LABS: Albumin * 2.6 gm/dl (3.4-5.0); Anion Gap 17.6 mmol/L (6.8-13.8); Ca. Corrected For Albumin 9.8 mg/dL (8.4-10.2); Carbon Dioxide 17.5 mmol/L (24-32.6); Potassium 4.1 mmol/L (3.4-4.6); Total Protein 5.8 gm/dL (6.2-8.2); Troponin I 0.046 ng/mL (0.00-0.10)
[2019-06-02 20:49] LABS: Basophil 1 % (0-1); Eosinophil 1 % (0-3); Lymphocyte 8 % (20-51); Monocyte 7 % (0-9); Neutrophil 83 % (42-75); Neutrophil # 9.3 K/mm3 (1.3-6.0); Platelet Estimate Normal (NORMAL)
[2019-06-02 20:51] LABS: Anisocytosis Trace; Ovalocytes Trace
[2019-06-02] MEDS ORDERED: FUROSEMIDE 10 MG/ML VIAL IV ONE (20:55)
[2019-06-02 21:07] LABS: Urine Bilirubin Negative (NEGATIVE); Urine Blood Negative /ul (NEGATIVE); Urine Ketone Negative (NEGATIVE); Urine Nitrite Negative (NEGATIVE); Urine Protein Negative (NEGATIVE); Urine Specific Gravity 1.015 SP.GR. (1.005-1.030); Urine Urobilinogen Normal (NORMAL)
[2019-06-02] MEDS ORDERED: VANCOMYCIN HCL 1 GM in DEXTROSE 5 % IN WATER 250 ML IV ONE ×2 (21:09)
[2019-06-02] MEDS ORDERED: PIPERACILLIN SODIUM/TAZOBACTAM 3.375 GM in DEXTROSE 5 % IN WATER 100 ML IV ONE ×2 (21:10)
[2019-06-02 21:14] LABS: Urine Appearance Clear (CLEAR); Urine Bacteria TRACE; Urine Color Dark Yellow; Urine RBC None Seen /hpf (0-5); Urine WBC None Seen /hpf (0-5)
[2019-06-02] MEDS ORDERED: traMADol HCL 50 MG TABLET PO ONE (21:31)
[2019-06-03] MEDS ORDERED: traMADol HCL 50 MG TABLET PO PRN (01:19)
[2019-06-03] MEDS ORDERED: ACETAMINOPHEN 650 MG SUPP.RECT RC PRN (01:21)
[2019-06-03] MEDS ORDERED: ALBUTEROL SULFATE/IPRATROPIUM 3 ML NEBU IH ONE (01:23)
[2019-06-03] MEDS: ALBUTEROL SULFATE/IPRATROPIUM 3 ML NEBU IH PRN ×2 (01:27→21:18)
[2019-06-03] MEDS: NORMAL SALINE 1,000 ML IV PRN ×2 (01:32→17:33)
[2019-06-03] MEDS ORDERED: NORMAL SALINE 500 ML IV ONE ×2 (07:53→11:52)
--- NOTE | 2019-06-03 08:14 | HP ---
Chief Complaint - Chief Complaint Date of Service: 06/03/19 Time of Service: 07:57 Chief Complaint: shortness of breath History of Present Illness: Patient has a past medical history of B-cell lymphoma. He had been undergoing chemotherapy, but had a difficult time with his last round, requiring hospitalization at the [facility]. He has been at the [facility] for approximately a month. He has been having difficulty swallowing for several weeks and has been losing weight. He has very limited range of motion of his arms, and has had a left facial droop. There was concern for stroke, but imaging did not show an infarct. Two days ago, he was drinking coffee, and went to cough, and inhaled some coffee. Yesterday he developed some gurgling noises at the care center, and was brought here yesterday evening. Chest x-ray did sh ow a retrocardiac infiltrate. He had a temp of 38.1 overnight. His blood pressure is decreasing this morning, and is down to 85/43. He received approximately 2500 cc IV fluids and 1 dose each of vanc and Zosyn in the ER last night. His heart rate, respiratory rate remain elevated. He is oxygenating at 90% via oxymask. The hospice conversation has been held with him multiple times, and he declined previously. Today he does agree to talk with hospice. He also agrees to shut off his defibrillator. Medical History (Updated 06/03/19 @ 08:14 by Ijeoma Kitchen DO) Hypertension (Acute) Onset Date: Unknown Diabetes mellitus (Acute) Onset Date: Unknown Cardiac defibrillator in place B-cell lymphoma CHF (congestive heart failure) Chickenpox Onset Date: Unknown as child Cholelithiasis Onset Date: [address] @ [facility] Coronary artery disease Onset Date: Unknown Diabetes mellitus, type II Onset Date: Unknown Measles Onset Date: Unknown as child Mumps Onset Date: Unknown as child Myocardial infarction Onset Date: Unknown Personal history of colonic polyps Onset Date: 1998 Tendinitis Onset Date: 2007 Dr. Gillette-left elbow and forearm benign neoplasm of skin; other specified sites of skin Onset Date: 2008 Recurring, LLE-neurofibroma hyperlipidemia Onset Date: Unknown Surgical History: Surgical History (Updated 06/03/19 @ 08:14 by Ijeoma Kitchen DO) S/P CABG x 5 (Acute) Onset Date: Unknown H/O nephrostomy History of excision of lesion Onset Date: 2008 [place]-Recurring lesion, LLE-neurofibroma History of repair of rotator cuff Onset Date: Unknown Hx laparoscopic cholecystectomy Onset Date: 2011 Tinguely colonoscopy with biopsy Onset Date: 2013-polyps x3, '-few scattered diverticula in sigmoid otherwise wnl- [facility]. Tinguely-tubular adenoma. Recheck 5 yrs. Family History: Family History (Updated 06/02/19 @ 23:50 by Marimar Poole RN) Other Adopted Social History: (Last Reviewed 06/02/19 @ 20:11 by Ailyn Pineda RN) Social History: Marital status: Single Tobacco: Smoking Status: Never smoker Alcohol: alcohol intake: current alcohol intake frequency: holiday/special occasion Substance Use: substance use type: does not use Dietary Habits: caffeine: Yes Review Of Systems (GEN) - Review of Systems Generalized/Overall Review: Present: Weakness, Fever Respiratory: Present: Cough Cardiac: Absent: Chest Pain, Edema Abdominal: Absent: Nausea, Vomiting Genitourinary: Present: No Symptoms Reported Musculoskeletal: Present: Neck Pain Neurological: Present: Weakness Skin: Present: No Symptoms Reported Immunizations: IMMUNIZATION HX Immunizations Up to Date Yes History of Influenza Vaccine Yes Hx Pneumococcal Vaccination Yes Allergies/Adverse Reactions: Allergies Allergy/AdvReac Type Severity Reaction Status Date / Time No Known Allergies Allergy Verified 06/02/19 23:50 Home Medications: HOME MEDICATIONS Acetaminophen 650 mg PO Q6H PRN 12/14/18 [Last Taken Unknown] Calcium Carbonate [Calcium] 1,250 mg PO QAM 12/14/18 [Last Taken 12/17/18 12:00] Insulin Aspart [Novolog Flexpen] See Protocol SQ TID 12/14/18 [Last Taken 12/17/18 19:30] Losartan Potassium 100 mg PO QAM 12/14/18 [Last Taken 12/17/18 12:00] Ondansetron HCl [Zofran] 8 mg PO Q8H PRN 12/14/18 [Last Taken Unknown] Polyethylene Glycol 3350 [Miralax] 17 gm PO DAILY PRN 12/14/18 [Last Taken Unknown] melatonin 5 mg tablet 5 mg PO HS #30 tab 05/12/19 [Last Taken Unknown] oxycodone-acetaminophen 5 mg-325 mg tablet 1 tab PO Q4H PRN #60 tab 05/12/19 [Last Taken Unknown] zolpidem 5 mg tablet 5 mg PO HS PRN #30 tab 05/14/19 [Last Taken Unknown] amiodarone 200 mg tablet 200 mg PO QAM 05/16/19 [Last Taken Unknown] insulin glargine (U-100) 100 unit/mL (3 mL) subcutaneous pen 20 unit SUBCUT HS ml 05/21/19 [Last Taken Unknown] Acyclovir [Zovirax] 400 mg PO BID 06/02/19 [Last Taken Unknown] acetaZOLAMIDE [Diamox Sequels] 500 mg PO BID 06/02/19 [Last Taken Unknown] Baclofen 10 mg PO DAILY PRN 06/03/19 [Last Taken Unknown] Carboxymethylcellulose Sodium [Refresh Liquigel] 2 drp .ROUTE BID PRN 06/03/19 [Last Taken Unknown] Docusate Sodium 100 mg PO Q24H PRN 06/03/19 [Last Taken Unknown] Furosemide 20 mg PO Q24H PRN 06/03/19 [Last Taken Unknown] Methyl Salicylate/Menthol [Bengay Greaseless Cream] 57 gm TOPICAL PRN PRN [Last Taken Unknown] Metoprolol Succinate 50 mg PO QAM 06/03/19 [Last Taken Unknown] Potassium Chloride 7.5 ml PO QAM 06/03/19 [Last Taken Unknown] cefTRIAXone SODIUM [Rocephin] 1 gm IM DAILY 06/03/19 [Last Taken Unknown] traMADol HCL [Tramadol HCl] 25 mg PO Q6H PRN 06/03/19 [Last Taken Unknown] Exam - Exam Vital Signs: Vital Signs - Last Taken Temp 36.8 C 06/03/19 06:53 Pulse 107 H 06/03/19 06:53 Resp 30 H 06/03/19 06:53 BP 85/43 L 06/03/19 06:53 Pulse Ox 91 L 06/03/19 07:19 Constitutional: Present: Elderly - frail ENT Exam: Present: other - left facial droop Neck: Present: lymphadenopathy (L) Respiratory: Present: rhonchi - RUL, tachypnea Cardiovascular/Chest: Present: tachycardia Abdomen: Present: soft, hypoactive Extremity: Absent: lower extremity edema Neurologic: Present: sensory deficit - unable to feels sensation in his legs. Makes sudden head movements, and appears somewhat restless Eye contact: Present: other - intermittent Diagnostic Studies: Abnormal Lab Results 06/02/19 06/02/19 06/02/19 Range/Units 20:17 20:17 20:17 WBC 11.2 H (4.0-10.5) K/mm3 RBC 3.87 L (4.7-6.0) M/mm3 Hgb 11.8 L (13.5-18.0) gm/dL Hct 37.5 L (42.0-52.0) % MCHC 31.5 L (32-36) g/dl RDW 17.7 H (11.5-14.0) % Plt Count 116 L (150-450) K/mm3 Neutrophils % (Manual) 83 H (42-75) % Lymphocytes % (Manual) 8 L (20-51) % Neutrophils # (Manual) 9.3 H (1.3-6.0) K/mm3 Lymphocytes # (Manual) 0.9 L (1.5-3.5) k/mm3 PT 12.3 H (9.1-10.7) Seconds INR (Anticoag Therapy) 1.25 H (0.92-1.08) INR pCO2 (35.0-48.0) mmHg HCO3 (21.0-28.0) mmol/L Total CO2 (19.0-24.0) mmol/L Base Excess (-2.0-3.0) mmol/L Chloride 110 H (97-106) mmol/L Carbon Dioxide 17.5 L (24-32.6) mmol/L Anion Gap 17.6 H (6.8-13.8) mmol/L BUN 45 H D (6-23) mg/dL BUN/Creatinine Ratio 45.0 H (9.0-21.6) Random Glucose 132 H (70-110) mg/dL Lactic Acid, Venous (0.4-2.0) mmol/L ALT 8 L (19-67) U/L B-Natriuretic Peptide 1318 H (5-350) pg/mL Total Protein 5.8 L (6.2-8.2) gm/dL Albumin 2.6 L (3.4-5.0) gm/dl 06/02/19 06/02/19 06/02/19 Range/Units 20:17 21:10 23:45 WBC (4.0-10.5) K/mm3 RBC (4.7-6.0) M/mm3 Hgb (13.5-18.0) gm/dL Hct (42.0-52.0) % MCHC (32-36) g/dl RDW (11.5-14.0) % Plt Count (150-450) K/mm3 Neutrophils % (Manual) (42-75) % Lymphocytes % (Manual) (20-51) % Neutrophils # (Manual) (1.3-6.0) K/mm3 Lymphocytes # (Manual) (1.5-3.5) k/mm3 PT (9.1-10.7) Seconds INR (Anticoag Therapy) (0.92-1.08) INR pCO2 20.8 L (35.0-48.0) mmHg HCO3 12.3 L (21.0-28.0) mmol/L Total CO2 12.9 L (19.0-24.0) mmol/L Base Excess -10.9 L (-2.0-3.0) mmol/L Chloride (97-106) mmol/L Carbon Dioxide (24-32.6) mmol/L Anion Gap (6.8-13.8) mmol/L BUN (6-23) mg/dL BUN/Creatinine Ratio (9.0-21.6) Random Glucose (70-110) mg/dL Lactic Acid, Venous 3.0 H* 2.5 H* (0.4-2.0) mmol/L ALT (19-67) U/L B-Natriuretic Peptide (5-350) pg/mL Total Protein (6.2-8.2) gm/dL Albumin (3.4-5.0) gm/dl Laboratory Results WBC 11.2 K/mm3 (4.0-10.5) H 06/02/19 20:17 RBC 3.87 M/mm3 (4.7-6.0) L 06/02/19 20:17 Hgb 11.8 gm/dL (13.5-18.0) L 06/02/19 20:17 Hct 37.5 % (42.0-52.0) L 06/02/19 20:17 MCV 96.9 fl (78-100) 06/02/19 20:17 MCH 30.5 pg (27-31) 06/02/19 20:17 MCHC 31.5 g/dl (32-36) L 06/02/19 20:17 RDW 17.7 % (11.5-14.0) H 06/02/19 20:17 Plt Count 116 K/mm3 (150-450) L 06/02/19 20:17 MPV 10.7 fl (8-11.3) 06/02/19 20:17 83 % (42-75) H 06/02/19 20:17 8 % (20-51) L 06/02/19 20:17 7 % (0-9) 06/02/19 20:17 1 % (0-3) 06/02/19 20:17 1 % (0-1) 06/02/19 20:17 9.3 K/mm3 (1.3-6.0) H 06/02/19 20:17 0.9 k/mm3 (1.5-3.5) L 06/02/19 20:17 0.8 k/mm3 (0.0-1.0) 06/02/19 20:17 0.1 k/mm3 (0.0-0.7) 06/02/19 20:17 0.1 k/mm3 (0.0-0.1) 06/02/19 20:17 Normal (NORMAL) 06/02/19 20:17 Trace 06/02/19 20:17 Trace 06/02/19 20:17 PT 12.3 Seconds (9.1-10.7) H 06/02/19 20:17 INR (Anticoag Therapy) 1.25 INR (0.92-1.08) H 06/02/19 20:17 PTT ([place]) 30.3 Seconds (24-32) 06/02/19 20:17 pCO2 20.8 mmHg (35.0-48.0) L 06/02/19 21:10 pO2 83.1 mmHg (83.0-108.0) 06/02/19 21:10 HCO3 12.3 mmol/L (21.0-28.0) L 06/02/19 21:10 Total CO2 12.9 mmol/L (19.0-24.0) L 06/02/19 21:10 Base Excess -10.9 mmol/L (-2.0-3.0) L 06/02/19 21:10 ABG pH 7.39 (7.35-7.45) 06/02/19 21:10 ABG O2 Sat (Measured) 96.4 % (94.0-98.0) 06/02/19 21:10 Sodium 141 mmol/L (132-142) 06/02/19 20:17 142 mmol/L (130-142) 06/02/19 20:17 Potassium 4.1 mmol/L (3.4-4.6) D 06/02/19 20:17 Chloride 110 mmol/L (97-106) H 06/02/19 20:17 Carbon Dioxide 17.5 mmol/L (24-32.6) L 06/02/19 20:17 17.6 mmol/L (6.8-13.8) H 06/02/19 20:17 BUN 45 mg/dL (6-23) H D 06/02/19 20:17 1.00 mg/dL (0.4-1.4) 06/02/19 20:17 Est GFR (Non-Af Amer) 78 mL/min (60-130) D 06/02/19 20:17 45.0 (9.0-21.6) H 06/02/19 20:17 132 mg/dL (70-110) H 06/02/19 20:17 2.5 mmol/L (0.4-2.0) H* 06/02/19 23:45 Calcium 9.0 mg/dL (7.9-10.9) 06/02/19 20:17 Calcium Adj for Albumin 9.8 mg/dL (8.4-10.2) 06/02/19 20:17 1.0 mg/dL (0.0-1.1) 06/02/19 20:17 AST 40 U/L (0-48) 06/02/19 20:17 ALT 8 U/L (19-67) L 06/02/19 20:17 96 U/L (50-170) 06/02/19 20:17 0.046 ng/mL (0.00-0.10) 06/02/19 20:17 B-Natriuretic Peptide 1318 pg/mL (5-350) H 06/02/19 20:17 5.8 gm/dL (6.2-8.2) L 06/02/19 20:17 2.6 gm/dl (3.4-5.0) L 06/02/19 20:17 Dark yellow 06/02/19 21:00 Clear (CLEAR) 06/02/19 21:00 6.0 pH (5.0-7.0) 06/02/19 21:00 Ur Specific [place] 1.015 SP.GR. (1.005-1.030) 06/02/19 21:00 Negative mg/dL (NEGATIVE) 06/02/19 21:00 Negative mg/dL (NEGATIVE) 06/02/19 21:00 Negative mg/dL (NEGATIVE) 06/02/19 21:00 Negative /ul (NEGATIVE) 06/02/19 21:00 Negative (NEGATIVE) 06/02/19 21:00 Negative mg/dl (NEGATIVE) 06/02/19 21:00 Normal EU/dl (NORMAL) 06/02/19 21:00 Ur Leukocyte Esterase Negative /ul (NEGATIVE) 06/02/19 21:00 None seen /hpf (0-5) 06/02/19 21:00 None seen /hpf (0-5) 06/02/19 21:00 Ur Epithelial Cells None seen /hpf (0-5) 06/02/19 21:00 Trace (NONE) 06/02/19 21:00 Culture to follow 06/02/19 21:00 Assessment/Plan - Assessment/Plan (1) Sepsis Assessment: Patient has a past medical history of B-cell lymphoma. He had been undergoing chemotherapy, but had a difficult time with his last round, requiring hospitalization. He has been at the [facility] for approximately a month. He has been having difficulty swallowing for several weeks and has been losing weight. Two days ago, he was drinking coffee, and went to cough, and inhaled some coffee. Yesterday he developed some gurgling noises at the care center, and was brought here yesterday evening. Chest x-ray did show a retrocardiac infiltrate. He had a temp of 38.1 overnight. His blood pressure is decreasing this morning, and is down to 85/43. He received approximately 2500 cc IV fluids and 1 dose each of vanc and Zosyn in the ER last night. His heart rate, respiratory rate remain elevated. He is oxygenating at 90% via oxymask. Lactate was elevated last night in the ED. His INR is a bit elevated and platelets are low, indicating possible liver failure also. The hospice conversation has been held with him multiple times, and he declined previously. Today he does agree to talk with hospice. He also agrees to shut off his defibrillator. For now, we will treat with a 500 cc bolus of normal saline, and continue the Vanco and Zosyn until the hospice talk has been had. Problem: Acute Qualifiers: Severe sepsis acute organ dysfunction type: acute respiratory failure Acute respiratory failure type: with hypoxia (2) B-cell lymphoma Assessment: He was unable to continue with chemo, and has had a break for several weeks. His sister feels like he has new lymph node enlargement of his left neck. With no treatment, his lymphoma may have progressed. Hospice consult appropriate. Problem: Chronic (3) CHF (congestive heart failure) Assessment: Will need to monitor closely for fluid overload. He needs fluids due to his sepsis, but may third space the fluids due to his CHF and decreased mobility. Problem: Chronic (4) Hypertension Problem: Chronic (5) Diabetes mellitus Assessment: He had been declining glucose checks at [facility], and given his respiratory distress, will hold frequent sticks. Problem: Chronic (6) Dysphagia Assessment: Speech eval recommends nectar thick liquids. Problem: Acute
[2019-06-03] MEDS: PIPERACILLIN SODIUM/TAZOBACTAM 3.375 GM in DEXTROSE 5 % IN WATER 100 ML IV SCH ×6 (09:08→23:39)
[2019-06-03] MEDS: ACETAMINOPHEN 1,000 MG/100 ML BTL IV PRN (09:57)
[2019-06-03] MEDS: MORPHINE SULFATE 10 MG/0.5 ML SYRINGE PO PRN ×2 (13:08→23:39)
[2019-06-03] MEDS: VANCOMYCIN HCL 1 GM in DEXTROSE 5 % IN WATER 250 ML IV SCH ×2 (13:52)
[2019-06-03] MEDS ORDERED: FUROSEMIDE 10 MG/ML VIAL IV ONE (16:47)
[2019-06-04] MEDS: VANCOMYCIN HCL 1 GM in DEXTROSE 5 % IN WATER 250 ML IV SCH ×4 (00:37→13:28)
[2019-06-04 05:52] LABS: Hematocrit 28.9 % (42.0-52.0); Hemoglobin 9.1 gm/dL (13.5-18.0); Mean Cell Volume 96.7 fl (78-100); Mean Corpuscular Hemoglobin 30.4 pg (27-31); Mean Corpuscular Hgb Conc 31.5 g/dl (32-36); Mean Platelet Volume 10.6 fl (8-11.3); Platelet Count 108 K/mm3 (150-450); Red Blood Count 2.99 M/mm3 (4.7-6.0); Red Cell Distribution Width 17.9 % (11.5-14.0); White Blood Count 4.6 K/mm3 (4.0-10.5)
[2019-06-04 06:10] LABS: BUN/Creatinine Ratio 42.7 (9.0-21.6); Bilirubin, Total 0.7 mg/dL (0.0-1.1); Ca. Corrected For Albumin 10.1 mg/dL (8.4-10.2); Calcium * 8.8 mg/dL (7.9-10.9); Carbon Dioxide 16.4 mmol/L (24-32.6); Total Protein 5.2 gm/dL (6.2-8.2)
[2019-06-04 06:11] LABS: Total Cells Counted 100
[2019-06-04 06:22] LABS: Anion Gap 18.3 mmol/L (6.8-13.8)
[2019-06-04 06:24] LABS: Band 10 % (0-2.0); Lymphocyte 14 % (20-51); Monocyte 4 % (0-9); Neutrophil 72 % (42-75); Neutrophil # 3.3 K/mm3 (1.3-6.0)
[2019-06-04 06:25] LABS: Potassium 2.7 mmol/L (3.4-4.6)
[2019-06-04 06:26] LABS: Dohle Bodies 2+; Hypochromia 1+; Platelet Estimate Decreased (NORMAL); Polychromasia 1+
--- NOTE | 2019-06-04 07:22 | PN ---
Subjective - Date and Time Seen Date: 06/04/19 Time: 07:22 Subjective Narrative: Friend in the room reports he did not sleep well last night. His blood pressure was still low overnight, but has improved this morning. He denies having new concerns. Objective - Review of Systems Generalized/Overall Review: Reports: Weakness EENTM: Reports: Other - lymph nodes Respiratory: Reports: Shortness of Breath Cardiac: Reports: Edema Abdominal: Denies: Vomiting Genitourinary Symptoms: Reports: No Symptoms Reported Musculoskeletal Complaints: Reports: Neck Pain Neurological: Reports: Pre-existing Deficit - extremity weakness - Vitals Vitals: Last Vital Signs Temp 37.0 C 06/04/19 03:29 Pulse 100 06/04/19 03:29 Resp 20 06/04/19 03:29 BP 95/50 06/04/19 03:29 Pulse Ox 99 06/04/19 03:29 - Abnormal Lab Findings Abnormal Lab Findings: Abnormal Lab Results 06/04/19 06/04/19 Range/Units 05:41 05:41 RBC 2.99 L (4.7-6.0) M/mm3 Hgb 9.1 L (13.5-18.0) gm/dL Hct 28.9 L (42.0-52.0) % MCHC 31.5 L (32-36) g/dl RDW 17.9 H (11.5-14.0) % Plt Count 108 L (150-450) K/mm3 Band Neuts % (Manual) 10 H (0-2.0) % Lymphocytes % (Manual) 14 L (20-51) % Lymphocytes # (Manual) 0.6 L (1.5-3.5) k/mm3 Platelet Estimate Decreased L (NORMAL) Sodium 147 H (132-142) mmol/L Plasma Sodium 147 H (130-142) mmol/L Potassium 2.7 L D (3.4-4.6) mmol/L Chloride 115 H (97-106) mmol/L Carbon Dioxide 16.4 L (24-32.6) mmol/L Anion Gap 18.3 H (6.8-13.8) mmol/L BUN 44 H (6-23) mg/dL BUN/Creatinine Ratio 42.7 H (9.0-21.6) ALT 9 L (19-67) U/L Total Protein 5.2 L (6.2-8.2) gm/dL Albumin 2.0 L (3.4-5.0) gm/dl - Exam Constitutional: Present: Elderly - appears ill Neck: Present: lymphadenopathy (R), lymphadenopathy (L) - tachypnea, wearing 5L via oxymask, slight increased work of breathing Respiratory: Present: crackles Cardiovascular/Chest: Present: tachycardia - 104 Abdomen: Present: soft, hypoactive Extremity: Present: swelling - 1+ edema of bilateral hands and lower extremities Neurologic: Present: other - unable to move extremities, his baseline Eye contact: Present: other - intermittent Assessment/Plan - Problems/Diagnosis (1) Sepsis Problem: Acute Qualifiers: Severe sepsis acute organ dysfunction type: acute respiratory failure Acute respiratory failure type: with hypoxia Narrative: Will continue vanc and zosyn for now. BP improved this morning. He was given gentle rehydration yesterday, with two fluid boluses of 500 cc, but developed worsened rhonchi and extremity edema. Maintenance fluid rate decreased to 75 cc/hr. His mentation has not changed, and he is still tachycardic and tachypneic, requiring oxygen. He aspirated coffee the day prior to admission. Has been afebrile the last 24 hours, and his WBC improved from 11.2 to 4.6. Blood cultures are thus far negative. With his decreased mentation, respiratory failure, he is displaying multi-system organ failure. He has B-cell lymphoma, and was not tolerating chemo. He has been unable to eat and has been losing weight. He is an appropriate hospice candidate, and they have been consulted. (2) B-cell lymphoma Problem: Chronic Narrative: He was unable to continue with chemo, and has had a break for several weeks. His sister feels like the lymph node enlargement of his left neck is new. He has multiple firm cervical lymph nodes. With no treatment, his lymphoma may have progressed. Hospice consult appropriate. (3) CHF (congestive heart failure) Problem: Chronic (4) Hypertension Problem: Chronic (5) Diabetes mellitus Problem: Chronic Narrative: Glucose has not been elevated. Will hold multiple glucose checks, as he had been declining these in the [place] prior to admission, and his glucose has been fine on morning labs. (6) Dysphagia Problem: Acute Narrative: Melvina liquid thick diet per speech therapy recommendations. If he decides to go hospice, he can eat what he'd like, knowing he may aspirate again. (7) Hypokalemia Problem: Acute Narrative: His potassium decreased to 2.7. Will give 40 mEq IV KCl. He has not been eating, and was given 40 mg IV lasix yesterday for fluid overload. (8) Anemia Problem: Chronic Qualifiers: Anemia type: unspecified type Qualified Code(s): D64.9 - Anemia, unspecified Narrative: Hgb of 9.1 today. No active signs of blood loss. Recheck in am.
[2019-06-04] MEDS: PIPERACILLIN SODIUM/TAZOBACTAM 3.375 GM in DEXTROSE 5 % IN WATER 100 ML IV SCH ×4 (08:26→15:08)
[2019-06-04] MEDS: POTASSIUM CHLORIDE IN WATER 100 ML IV SCH ×4 (08:29→13:06)
[2019-06-04] MEDS: NORMAL SALINE 1,000 ML IV PRN (09:28)
[2019-06-04] MEDS: ACETAMINOPHEN 1,000 MG/100 ML BTL IV PRN (13:09)
[2019-06-04] MEDS ORDERED: POLYVINYL ALCOHOL 150 DROP BTL EACHEYE PRN (13:15)
[2019-06-04] MEDS: MORPHINE SULFATE 10 MG/0.5 ML SYRINGE PO PRN ×2 (14:22→20:40)
[2019-06-04] MEDS: ALBUTEROL SULFATE/IPRATROPIUM 3 ML NEBU IH PRN ×2 (14:25→20:56)
[2019-06-05] MEDS: ACETAMINOPHEN 1,000 MG/100 ML BTL IV PRN ×2 (00:01→17:40)
[2019-06-05] MEDS: NORMAL SALINE 1,000 ML IV PRN ×2 (00:40→19:57)
[2019-06-05] MEDS: PIPERACILLIN SODIUM/TAZOBACTAM 3.375 GM in DEXTROSE 5 % IN WATER 100 ML IV SCH ×2 (00:41)
[2019-06-05] MEDS: VANCOMYCIN HCL 1 GM in DEXTROSE 5 % IN WATER 250 ML IV SCH ×2 (00:47)
[2019-06-05] MEDS: MORPHINE SULFATE 10 MG/0.5 ML SYRINGE PO PRN ×4 (04:11→23:24)
[2019-06-05 06:41] LABS: Hematocrit 30.6 % (42.0-52.0); Hemoglobin 9.4 gm/dL (13.5-18.0); Mean Cell Volume 101.7 fl (78-100); Mean Corpuscular Hemoglobin 31.2 pg (27-31); Mean Corpuscular Hgb Conc 30.7 g/dl (32-36); Mean Platelet Volume 10.4 fl (8-11.3); Neutrophil # 2.9 K/mm3 (1.3-6.0); Neutrophil % 71.4 % (42-75.0); Platelet Count 101 K/mm3 (150-450); Red Blood Count 3.01 M/mm3 (4.7-6.0); Red Cell Distribution Width 18.3 % (11.5-14.0); White Blood Count 4.1 K/mm3 (4.0-10.5)
[2019-06-05 06:56] LABS: Albumin * 1.9 gm/dl (3.4-5.0); Anion Gap 14.8 mmol/L (6.8-13.8); BUN/Creatinine Ratio 44.4 (9.0-21.6); Bilirubin, Total 0.6 mg/dL (0.0-1.1); Ca. Corrected For Albumin 9.9 mg/dL (8.4-10.2); Calcium * 8.5 mg/dL (7.9-10.9); Carbon Dioxide 19.2 mmol/L (24-32.6); Total Protein 5.3 gm/dL (6.2-8.2)
[2019-06-05 07:14] LABS: Total Cells Counted 100
[2019-06-05 07:38] LABS: Eosinophil 1 % (0-3); Immature Granulocyte 8 (0-1); Lymphocyte 8 % (20-51); Monocyte 7 % (0-9); Neutrophil 76 % (42-75); Neutrophil # 3.1 K/mm3 (1.3-6.0)
[2019-06-05 07:39] LABS: Platelet Estimate Normal (NORMAL); RBC Morphology Normal (NORMAL)
[2019-06-05] MEDS: POTASSIUM CHLORIDE IN WATER 100 ML IV SCH ×4 (08:49→12:15)
--- NOTE | 2019-06-05 09:29 | PN ---
Subjective - Date and Time Seen Date: 06/05/19 Time: 09:28 Subjective Narrative: Friend in the room says he seems comfortable. He is sleeping more than previously. Objective - Review of Systems Generalized/Overall Review: Reports: Weakness, Fatigue Respiratory: Reports: Shortness of Breath, Other. Denies: Cough Abdominal: Denies: Nausea Genitourinary Symptoms: Reports: Incontinent Neurological: Reports: Weakness Skin: Reports: No Symptoms Reported - Vitals Vitals: Last Vital Signs Temp 36.6 C 06/05/19 03:30 Pulse 90 06/05/19 03:30 Resp 28 H 06/05/19 03:30 BP 122/59 06/05/19 03:30 Pulse Ox 96 06/05/19 03:30 - Abnormal Lab Findings Abnormal Lab Findings: Abnormal Lab Results 06/05/19 06/05/19 Range/Units 06:39 06:39 RBC 3.01 L (4.7-6.0) M/mm3 Hgb 9.4 L (13.5-18.0) gm/dL Hct 30.6 L (42.0-52.0) % MCV 101.7 H (78-100) fl MCH 31.2 H (27-31) pg MCHC 30.7 L (32-36) g/dl RDW 18.3 H (11.5-14.0) % Plt Count 101 L (150-450) K/mm3 Immature Gran % (Auto) 10.90 H (0.001-0.429) % Immature Gran # (Auto) 0.45 H (0.000-0.0310) K/mm3 Neutrophils % (Manual) 76 H (42-75) % Lymphocytes % 3.9 L (20-51) % Lymphocytes % (Manual) 8 L (20-51) % Monocytes % 9.2 H (0.0-9) % Eosinophils % 4.1 H (0.0-3.0) % Immature Granulocytes 8 H (0-1) Lymphocytes # 0.16 L (1.5-3.5) k/mm3 Lymphocytes # (Manual) 0.3 L (1.5-3.5) k/mm3 Sodium 147 H (132-142) mmol/L Plasma Sodium 148 H (130-142) mmol/L Potassium 3.0 L (3.4-4.6) mmol/L Chloride 116 H (97-106) mmol/L Carbon Dioxide 19.2 L (24-32.6) mmol/L Anion Gap 14.8 H (6.8-13.8) mmol/L BUN 32 H (6-23) mg/dL BUN/Creatinine Ratio 44.4 H (9.0-21.6) Random Glucose 159 H D (70-110) mg/dL ALT 7 L (19-67) U/L Total Protein 5.3 L (6.2-8.2) gm/dL Albumin 1.9 L (3.4-5.0) gm/dl - Exam Constitutional: Present: No distress - does not waken for exam, Elderly Respiratory: Present: rhonchi - upper anterior bilateral Cardiovascular/Chest: Present: regular rate, rhythm Abdomen: Present: soft Extremity: Present: swelling - 1+ bilateral lower extremities Assessment/Plan - Problems/Diagnosis (1) Sepsis Problem: Resolved Qualifiers: Severe sepsis acute organ dysfunction type: acute respiratory failure Acute respiratory failure type: with hypoxia Narrative: His BP, heart rate, and respiratory rates have improved, and he is no longer considered septic. He aspirated coffee the day prior to admission. Zosyn has been changed to rocephin. No documented fevers in the last 24 hours. However, his physical exam has declined since yesterday. He is less alert, and upper chest congestion has resumed. He may pass within the next couple of days. (2) B-cell lymphoma Problem: Chronic Narrative: He had been undergoing chemo, but had an adverse reaction to chemo, and has not resumed treatment for a couple of months. He has increased firm lymph nodes in his neck. His appetite has been decreased, and he's been losing weight. He has not been able to move his limbs since the last chemo treatment. He is an appropriate hospice candidate, and his family has discussed their options. They would like to see how he does over the weekend, and reassess on Friday. His difibrillator has been deactivated, and some comfort measures are in place, but he is not currently actually a hospice patient because he is still receiving treatment. He is receiving morphone q3h prn for pain and respiratory distress. (3) CHF (congestive heart failure) Problem: Chronic Narrative: His BP was low, and he received two 500 cc boluses on 06/03, and developed edema and chest congestion. With his inability to move, his is at risk for third spacing IV fluids. His maintenance rate is 125 cc/hr, but was reduced to 75 cc due to the fluid overload. (4) Hypertension Problem: Chronic (5) Diabetes mellitus Problem: Chronic (6) Dysphagia Problem: Acute (7) Hypokalemia Problem: Acute Narrative: He got 40 mEq KCl yesterday via IV, and potassium improved from 2.7 to 3.0 He was given an additional 40 mEq IV this morning. (8) Anemia Problem: Chronic Qualifiers: Anemia type: unspecified type Qualified Code(s): D64.9 - Anemia, unspecifi ed
[2019-06-05] MEDS ORDERED: FUROSEMIDE 10 MG/ML VIAL IV ONE (10:54)
[2019-06-05] MEDS ORDERED: VANCOMYCIN HCL LEVEL XX ONE (12:30)
[2019-06-06] MEDS: ACETAMINOPHEN 1,000 MG/100 ML BTL IV PRN (00:48)
[2019-06-06] MEDS: MORPHINE SULFATE 10 MG/0.5 ML SYRINGE PO PRN ×4 (03:19→15:31)
[2019-06-06 07:26] LABS: Hematocrit 32.1 % (42.0-52.0); Hemoglobin 9.9 gm/dL (13.5-18.0); Mean Cell Volume 99.4 fl (78-100); Mean Corpuscular Hemoglobin 30.7 pg (27-31); Mean Corpuscular Hgb Conc 30.8 g/dl (32-36); Platelet Count 123 K/mm3 (150-450); Red Blood Count 3.23 M/mm3 (4.7-6.0); Red Cell Distribution Width 18.6 % (11.5-14.0); White Blood Count 6.1 K/mm3 (4.0-10.5)
[2019-06-06 07:31] LABS: Total Cells Counted 100
[2019-06-06 07:36] LABS: Albumin * 1.7 gm/dl (3.4-5.0); Bilirubin, Total 0.5 mg/dL (0.0-1.1); Ca. Corrected For Albumin 10.8 mg/dL (8.4-10.2); Calcium * 9.3 mg/dL (7.9-10.9); Total Protein 5.1 gm/dL (6.2-8.2)
[2019-06-06 07:50] LABS: Band 4 % (0-2.0); Lymphocyte 15 % (20-51); Monocyte 3 % (0-9); Neutrophil 78 % (42-75); Neutrophil # 4.8 K/mm3 (1.3-6.0)
[2019-06-06 07:51] LABS: Platelet Estimate Normal (NORMAL)
[2019-06-06 07:52] LABS: Hypochromia 1+
[2019-06-06 08:08] LABS: RBC Morphology Normal (NORMAL)
[2019-06-06] MEDS: NORMAL SALINE 1,000 ML IV PRN (09:13)
--- NOTE | 2019-06-06 11:32 | PN ---
Subjective - Date and Time Seen Date: 06/06/19 Time: 11:19 Subjective Narrative: His sister reports he was responsive yesterday evening, but has not been reacting this morning. He has some extremity swelling. Objective - Review of Systems Generalized/Overall Review: Reports: No Symptoms Reported - Patient unable to contribute to review of systems. Family reports he appears comfortable. Cardiac: Reports: Edema - Vitals Vitals: Last Vital Signs Temp 37.0 C 06/06/19 06:55 Pulse 124 H 06/06/19 06:55 Resp 32 H 06/06/19 06:55 BP 105/55 06/06/19 06:55 Pulse Ox 94 06/06/19 06:55 - Abnormal Lab Findings Abnormal Lab Findings: Abnormal Lab Results 06/06/19 06/06/19 Range/Units 07:14 07:14 RBC 3.23 L (4.7-6.0) M/mm3 Hgb 9.9 L (13.5-18.0) gm/dL Hct 32.1 L (42.0-52.0) % MCHC 30.8 L (32-36) g/dl RDW 18.6 H (11.5-14.0) % Plt Count 123 L (150-450) K/mm3 Neutrophils % (Manual) 78 H (42-75) % Band Neuts % (Manual) 4 H (0-2.0) % Lymphocytes % (Manual) 15 L (20-51) % Lymphocytes # (Manual) 0.9 L (1.5-3.5) k/mm3 Sodium 153 H (132-142) mmol/L Plasma Sodium 154 H (130-142) mmol/L Chloride 121 H (97-106) mmol/L Carbon Dioxide 17.0 L (24-32.6) mmol/L Anion Gap 19.0 H (6.8-13.8) mmol/L BUN 39 H (6-23) mg/dL BUN/Creatinine Ratio 47.0 H (9.0-21.6) Random Glucose 158 H (70-110) mg/dL Calcium Adj for Albumin 10.8 H (8.4-10.2) mg/dL ALT 8 L (19-67) U/L Total Protein 5.1 L (6.2-8.2) gm/dL Albumin 1.7 L (3.4-5.0) gm/dl - Exam Constitutional: Present: No distress - Does not awaken for exam, Elderly Respiratory: Present: crackles - Wearing 3.5 L oxygen by nasal cannula. Tachypnea Cardiovascular/Chest: Present: tachycardia Abdomen: Present: soft, no bowel sounds Extremity: Present: swelling - 1+ bilateral hands and lower extremities Skin Exam: Absent: mottled Assessment/Plan - Problems/Diagnosis (1) Sepsis Problem: Resolved Qualifiers: Severe sepsis acute organ dysfunction type: acute respiratory failure Acute respiratory failure type: with hypoxia Narrative: He received 2 days of Zosyn, and antibiotics were changed to Rocephin yesterday. He aspirated a coffee earlier this week. His mentation has been decreased for the last couple of days. With his lymphoma, he was weak at baseline, and is not recovering. His respiratory rate and heart rate have again increased. Hospice has been consulted, and his sister would like to continue treatment through the weekend. His blood pressure decreased to 60s over 30s yesterday, but has been in the low 100 systolic this morning. (2) B-cell lymphoma Problem: Chronic Narrative: Patient did not tolerate chemotherapy treatments, and has not had any for a couple of months. The last treatment caused extremity flaccidity. He was not able to eat and had lost weight prior to admission. He had been resistant to hospice talks since admission to the [facility] approximately a month ago, but agreed to talking with hospice personnel on this admission. (3) CHF (congestive heart failure) Problem: Chronic Narrative: With his immobility, he is not tolerating IV fluids very well, with pulmonary congestion on exam, and extremity swelling. Will decreased rate to 50 cc/hr. (4) Hypertension Problem: Chronic (5) Diabetes mellitus Problem: Chronic (6) Dysphagia Problem: Chronic (7) Hypokalemia Problem: Acute Narrative: Improved to 4.0 after 40 mEq yesterday via IV. (8) Anemia Problem: Chronic Qualifiers: Anemia type: unspecified type Qualified Code(s): D64.9 - Anemia, unspecified
[2019-06-06 20:43] VITALS: BP 0/0
--- NOTE | 2019-06-07 15:58 | DS ---
(1) Sepsis Problem: Resolved Qualifiers: Severe sepsis acute organ dysfunction type: acute respiratory failure Acute respiratory failure type: with hypoxia (2) B-cell lymphoma Problem: Chronic (3) CHF (congestive heart failure) Problem: Chronic (4) Hypertension Problem: Chronic (5) Diabetes mellitus Problem: Chronic (6) Dysphagia Problem: Chronic (7) Hypokalemia Problem: Acute (8) Anemia Problem: Chronic Qualifiers: Anemia type: unspecified type Qualified Code(s): D64.9 - Anemia, unspecified Date of Discharge:: 06/06/19 Description of Stay: Patient with a past medical history of B-cell lymphoma. He had been undergoing chemotherapy, but had a difficult time with his last round, requiring hospitalization at the [facility]. He had been at the [facility] for approximately a month after that hospitalization. He had been having difficulty swallowing for several weeks and has been losing weight. He had very limited range of motion of his arms, and has had a left facial droop. There was concern for stroke, but imaging did not show an infarct. The day prior to admission, he was drinking coffee, and went to cough, and inhaled some coffee. The day of admission, he developed some gurgling noises at the [facility] center, and was brought to the ED. Chest x-ray did show a retrocardiac infiltrate. He had a temp of 38.1 the first night of admission. His blood pressure decreased the following morning, down to 85/43. He received approximately 2500 cc IV fluids and 1 dose each of vanc and Zosyn in the ER. His heart rate, respiratory rate remain elevated. He is oxygenating at 90% via oxymask. The hospice conversation has been held with him multiple times, and he declined previously. The day after admission, he did agree to talk with hospice. He also agrees to shut off his defibrillator. Personnel from traveled here and deactivated his defibrillator. He mentation deteriorated during his stay. He received 48 hours of vanc and zosyn, and abx were switched to rocephin. This was labor day weekend, and his sister wanted treatment continued until the Friday after admission, then a final hospice determination would be made. However, he became increasingly somnolent despite the antiobiotics and fluids. He developed some fluid overload, even though the fluids were being given at less than maintenance rate. His sister was aware that he was not responding to treatment, and wanted to keep him comfortable as possible, but did not want to withdraw treatment. He passed the evening of 06/06/19. Procedures Performed: none Results and Findings: Pending Mircobiology Results 06/02/19 20:40 Blood Blood Culture - Preliminary NO GROWTH AFTER 48 HOURS 06/02/19 20:17 Blood Blood Culture - Preliminary NO GROWTH AFTER 48 HOURS Lab Pending Results 06/02/19 20:17: WBC 11.2 H, RBC 3.87 L, Hgb 11.8 L, Hct 37.5 L, MCV 96.9, MCH 30.5, MCHC 31.5 L, RDW 17.7 H, Plt Count 116 L, MPV 10.7, Neutrophils % (Manual) 83 H, Lymphocytes % (Manual) 8 L, Monocytes % (Manual) 7, Eosinophils % (Manual) 1, Basophils % (Manual) 1, Neutrophils # (Manual) 9.3 H, Lymphocytes # (Manual) 0.9 L, Monocytes # (Manual) 0.8, Eosinophils # (Manual) 0.1, Basophils # (Manual) 0.1, Platelet Estimate Normal, Anisocytosis Trace, Ovalocytes Trace 06/02/19 20:17: PT 12.3 H, INR (Anticoag Therapy) 1.25 H, PTT (Hyde) 30.3 06/02/19 20:17: Sodium 141, Plasma Sodium 142, Potassium 4.1 D, Chloride 110 H, Carbon Dioxide 17.5 L, Anion Gap 17.6 H, BUN 45 H D, Creatinine 1.00, Est GFR (Non-Af Amer) 78 D, BUN/Creatinine Ratio 45.0 H, Random Glucose 132 H, Calcium 9.0, Calcium Adj for Albumin 9.8, Total Bilirubin 1.0, AST 40, ALT 8 L, Alkaline Phosphatase 96, Troponin I 0.046, B-Natriuretic Peptide 1318 H, Total Protein 5.8 L, Albumin 2.6 L 06/02/19 20:17: Lactic Acid, Venous 3.0 H* 06/02/19 21:00: Urine Color Dark yellow, Urine Appearance Clear, Urine pH 6.0, Ur Specific [place] 1.015, Urine Protein Negative, Urine Glucose (UA) Negative, Urine Ketones Negative, Urine Blood Negative, Urine Nitrate Negative, Urine Bilirubin Negative, Urine Urobilinogen Normal, Ur Leukocyte Esterase Negative, Urine RBC None seen, Urine WBC None seen, Ur Epithelial Cells None seen, Urine Bacteria Trace, Urine Culture Comments Culture to follow 06/02/19 21:10: pCO2 20.8 L, pO2 83.1, HCO3 12.3 L, Total CO2 12.9 L, Base Excess -10.9 L, ABG pH 7.39, ABG O2 Sat (Measured) 96.4 06/02/19 23:45: Lactic Acid, Venous 2.5 H* 06/04/19 05:41: WBC 4.6 D, RBC 2.99 L, Hgb 9.1 L, Hct 28.9 L, MCV 96.7, MCH 30.4, MCHC 31.5 L, RDW 17.9 H, Plt Count 108 L, MPV 10.6, Neutrophils % (Manual) 72, Band Neuts % (Manual) 10 H, Lymphocytes % (Manual) 14 L, Monocytes % (Manual) 4, Neutrophils # (Manual) 3.3, Lymphocytes # (Manual) 0.6 L, Monocytes # (Manual) 0.2, Dohle Bodies 2+, Platelet Estimate Decreased L, Polychromasia 1+, Hypochromasia 1+ 06/04/19 05:41: Sodium 147 H, Plasma Sodium 147 H, Potassium 2.7 L D, Chloride 115 H, Carbon Dioxide 16.4 L, Anion Gap 18.3 H, BUN 44 H, Creatinine 1.03, Est GFR (Non-Af Amer) 76, BUN/Creatinine Ratio 42.7 H, Random Glucose 98, Calcium 8.8, Calcium Adj for Albumin 10.1, Total Bilirubin 0.7, AST 41, ALT 9 L, Alkaline Phosphatase 80, Total Protein 5.2 L, Albumin 2.0 L 06/05/19 06:39: WBC 4.1, RBC 3.01 L, Hgb 9.4 L, Hct 30.6 L, MCV 101.7 H, MCH 31.2 H, MCHC 30.7 L, RDW 18.3 H, Plt Count 101 L, MPV 10.4, Immature Gran % (Auto) 10.90 H, Immature Gran # (Auto) 0.45 H, Neutrophils % 71.4, Neutrophils % (Manual) 76 H, Lymphocytes % 3.9 L, Lymphocytes % (Manual) 8 L, Monocytes % 9.2 H, Monocytes % (Manual) 7, Eosinophils % 4.1 H, Eosinophils % (Manual) 1, Basophils % 0.5, Nucleated RBC % 0.0, Immature Granulocytes 8 H, Neutrophils # 2.9, Neutrophils # (Manual) 3.1, Lymphocytes # 0.16 L, Lymphocytes # (Manual) 0.3 L, Monocytes # 0.4, Monocytes # (Manual) 0.3, Eosinophils # 0.2, Eosinophils # (Manual) 0.0, Absolute Basophils 0.0, Platelet Estimate Normal, RBC Morphology Normal 06/05/19 06:39: Sodium 147 H, Plasma Sodium 148 H, Potassium 3.0 L, Chloride 116 H, Carbon Dioxide 19.2 L, Anion Gap 14.8 H, BUN 32 H, Creatinine 0.72, Est GFR (Non-Af Amer) 114 D, BUN/Creatinine Ratio 44.4 H, Random Glucose 159 H D, Calcium 8.5, Calcium Adj for Albumin 9.9, Total Bilirubin 0.6, AST 38, ALT 7 L, Alkaline Phosphatase 78, Total Protein 5.3 L, Albumin 1.9 L 06/06/19 07:14: WBC 6.1 D, RBC 3.23 L, Hgb 9.9 L, Hct 32.1 L, MCV 99.4, MCH 30.7, MCHC 30.8 L, RDW 18.6 H, Plt Count 123 L, MPV 10.0, Neutrophils % (Manual) 78 H, Band Neuts % (Manual) 4 H, Lymphocytes % (Manual) 15 L, Monocytes % (Manual) 3, Neutrophils # (Manual) 4.8, Lymphocytes # (Manual) 0.9 L, Monocytes # (Manual) 0.2, Platelet Estimate Normal, RBC Morphology Normal, Hypochromasia 1+ 06/06/19 07:14: Sodium 153 H, Plasma Sodium 154 H, Potassium 4.0 D, Chloride 121 H, Carbon Dioxide 17.0 L, Anion Gap 19.0 H, BUN 39 H, Creatinine 0.83, Est GFR (Non-Af Amer) 97, BUN/Creatinine Ratio 47.0 H, Random Glucose 158 H, Calcium 9.3, Calcium Adj for Albumin 10.8 H, Total Bilirubin 0.5, AST 34, ALT 8 L, Alkaline Phosphatase 77, Total Protein 5.1 L, Albumin 1.7 L Disposition: Condition: Discharge Activity: Other Discharge Diet: Other Complete Home Medications List: Complete Home Medication List: Acetaminophen 650 mg PO Q6H PRN 12/14/18 Calcium Carbonate [Calcium] 1,250 mg PO QAM 12/14/18 Insulin Aspart [Novolog Flexpen] See Protocol SQ TID 12/14/18 Losartan Potassium 100 mg PO QAM 12/14/18 Ondansetron HCl [Zofran] 8 mg PO Q8H PRN 12/14/18 Polyethylene Glycol 3350 [Miralax] 17 gm PO DAILY PRN 12/14/18 melatonin 5 mg tablet 5 mg PO HS #30 tab 05/12/19 oxycodone-acetaminophen 5 mg-325 mg tablet 1 tab PO Q4H PRN #60 tab 05/12/19 zolpidem 5 mg tablet 5 mg PO HS PRN #30 tab 05/14/19 amiodarone 200 mg tablet 200 mg PO QAM 05/16/19 insulin glargine (U-100) 100 unit/mL (3 mL) subcutaneous pen 20 unit SUBCUT HS ml 05/21/19 Acyclovir [Zovirax] 400 mg PO BID 06/02/19 acetaZOLAMIDE [Diamox Sequels] 500 mg PO BID 06/02/19 Baclofen 10 mg PO DAILY PRN 06/03/19 Carboxymethylcellulose Sodium [Refresh Liquigel] 2 drp .ROUTE BID PRN 06/03/19 Docusate Sodium 100 mg PO Q24H PRN 06/03/19 Furosemide 20 mg PO Q24H PRN 06/03/19 Methyl Salicylate/Menthol [Bengay Greaseless Cream] 57 gm TOPICAL PRN PRN 06/03/19 Metoprolol Succinate 50 mg PO QAM 06/03/19 Potassium Chloride 7.5 ml PO QAM 06/03/19 cefTRIAXone SODIUM [Rocephin] 1 gm IM DAILY 06/03/19 traMADol HCL [Tramadol HCl] 25 mg PO Q6H PRN 06/03/19
== END 2019-06-06 18:28 | disposition expired | DRG 177 ==
LOC: MS 19:29 → ER 19:29 → MS 23:20
PROVIDERS: ADMIT Internal Medicine; ATTEND Family Medicine
DX: I25.5 Ischemic cardiomyopathy; J69.0 Pneumonitis due to inhalation of food and vomit; Z79.4 Long term (current) use of insulin; C85.10 Unspecified B-cell lymphoma, unspecified site; N17.9 Acute kidney failure, unspecified; R00.0 Tachycardia, unspecified; D64.9 Anemia, unspecified; J96.01 Acute respiratory failure with hypoxia; N18.3 Chronic kidney disease, stage 3 (moderate); I13.0 Hypertensive heart and chronic kidney disease with heart failure and stage 1 through stage 4 chronic kidney disease, or unspecified chronic kidney disease; E11.9 Type 2 diabetes mellitus without complications; G51.0 Bell's palsy; R65.20 Severe sepsis without septic shock; E11.22 Type 2 diabetes mellitus with diabetic chronic kidney disease; C82.91 Follicular lymphoma, unspecified, lymph nodes of head, face, and neck; I25.10 Atherosclerotic heart disease of native coronary artery without angina pectoris; Z95.1 Presence of aortocoronary bypass graft; I50.9 Heart failure, unspecified; Z95.0 Presence of cardiac pacemaker
CPT/HCPCS: 36415; 36600; 71010; 71045; 80053; 81001; 82803; 83519; 83605; 83880; 84484; 85007; 85025; 85610; 85730; 87040; 87081; 87086; 92526; 92610; 93005; 94640; 94664; 96361; 96365; 96375; 99285; G0378; J0131